=== PATIENT | female | born 1970 | race Two or more races ===

== ENCOUNTER 2021-03-22 05:50 | Day surgery (SDC) | payer OTHER ==
[~2021-03-22] VITALS: Ht 157.5 cm; Wt 80.7 kg
[~2021-03-22 05:50] MED LIST: FOLIC A PO; METHOTREXATE2.5 MG; PREDNISONE PO; SYNTHROID100 MCG PO; [UNRECOGNIZED DRUG - OTHER] PO
[2021-03-22] MEDS ORDERED: RAYOS5 MG (08:15)
[2021-03-22] MEDS ORDERED: LAMICTAL200 MG (08:15)
[2021-03-22] MEDS ORDERED: TRAZODONE HCL50 MG (08:16)
[2021-03-22] MEDS ORDERED: SYNTHROID75 MCG (08:16)
[2021-03-22] MEDS ORDERED: CITALOPRAM HBR10 MG (08:16)
[2021-03-22] MEDS ORDERED: DULOXETINE HCL60 MG (08:16)
[2021-03-22] MEDS ORDERED: SIMVASTATIN20 MG (08:16)
[2021-03-22] MEDS ORDERED: FOLIC ACID0.8 M1 (08:17)
[2021-03-22] MEDS ORDERED: MEDROLPACK PO (11:25)
[2021-03-22] MEDS ORDERED: DIAZEPAM5 MG PO (11:25)
[2021-03-22] MEDS ORDERED: PERCOCET 5-3251 EACH PO (11:25)
[2021-03-22] MEDS ORDERED: COLACE100 MG PO (11:25)
== END 2021-03-23 12:23 | disposition home or self-care (01) ==
LOC: PED 05:50 → CIR.AMB 05:50 → O/R 05:50 → SURH 05:50 → EDSTATUS 10:15 → SURH 10:45 → O/R 13:39 → PED 13:39 → CIR.AMB 03-23 12:23
PROVIDERS: ATTEND Orthopaedic Surgery Orthopaedic Surgery of the Spine
DX: M50.021 Cervical disc disorder at C4-C5 level with myelopathy (principal); M50.022 Cervical disc disorder at C5-C6 level with myelopathy; M50.023 Cervical disc disorder at C6-C7 level with myelopathy; Z20.822 Contact with and (suspected) exposure to COVID-19
CPT/HCPCS: 22551; 20939; 22552 ×2; 22846; 22853 ×3; C1776

== ENCOUNTER 2022-05-11 09:15 | Inpatient (IN) | payer OTHER ==
[~2022-05-11] VITALS: Ht 157.5 cm; Wt 78.9 kg
[~2022-05-11 09:15] MED LIST changes: +CITALOPRAM HBR10 MG; +COLACE100 MG PO; +DIAZEPAM5 MG PO; +DULOXETINE HCL60 MG; +FOLIC ACID0.8 M1; +LAMICTAL200 MG; +MEDROLPACK PO; +PERCOCET 5-3251 EACH PO; +RAYOS5 MG; +SIMVASTATIN20 MG; +SYNTHROID75 MCG; +TRAZODONE HCL50 MG
[2022-05-11] MEDS ORDERED: SYNTHROID88 MCG (10:59)
[2022-05-17] MEDS ORDERED: NEURONTIN800 MG PO (07:35)
[2022-05-17] MEDS ORDERED: MEDROLPACK PO (07:35)
[2022-05-17] MEDS ORDERED: COLACE100 MG PO (07:35)
[2022-05-17] MEDS ORDERED: PERCOCET 5-3251 EACH PO (07:35)
[2022-05-17] MEDS ORDERED: CLEOCIN HCL300 MG PO (07:35)
== END 2022-05-19 11:52 | disposition home or self-care (01) | DRG 455 ==
LOC: PED 05-17 05:54 → O/R 05-17 05:54 → SURG 05-17 09:15 → PED 05-17 10:37 → SURG 05-17 10:45 → PED 05-19 11:52
PROVIDERS: ADMIT Orthopaedic Surgery Orthopaedic Surgery of the Spine; ATTEND Orthopaedic Surgery Orthopaedic Surgery of the Spine
PROC: 0SG1071 Fusion of 2 or more Lumbar Vertebral Joints with Autologous Tissue Substitute, Posterior Approach, Posterior Column, Open Approach (ICD-10-PCS; 2022-05-17)
PROC: 0ST20ZZ Resection of Lumbar Vertebral Disc, Open Approach (ICD-10-PCS; 2022-05-17)
PROC: 0QH004Z Insertion of Internal Fixation Device into Lumbar Vertebra, Open Approach (ICD-10-PCS; 2022-05-17)
PROC: 0QB30ZZ Excision of Left Pelvic Bone, Open Approach (ICD-10-PCS; 2022-05-17)
PROC: 07DR3ZZ Extraction of Iliac Bone Marrow, Percutaneous Approach (ICD-10-PCS; 2022-05-17)
PROC: XRGC0R7 Fusion of 2 or more Lumbar Vertebral Joints using Custom-Made Anatomically Designed Interbody Fusion Device, Open Approach, New Technology Group 7 (ICD-10-PCS; principal; 2022-05-17 10:45)
DX: M48.062 Spinal stenosis, lumbar region with neurogenic claudication (principal); M51.36 Other intervertebral disc degeneration, lumbar region; M79.7 Fibromyalgia; E03.9 Hypothyroidism, unspecified